=== PATIENT | female | born 1945 | race Hispanic/Latino ===

== ENCOUNTER 2018-04-29 15:02 | Outpatient (CLI) | payer MEDICARE ==
[2018-04-29 15:50] LABS: Blood Urea Nitrogen 12 mg/dL (7-17)
--- NOTE | 2018-04-30 08:20 | Magnetic Resonance Report ---
MRI BRAIN WITHOUT CONTRAST: 04/29/18 15:02:00 CLINICAL: Transient cerebral ischemia TECHNIQUE: Axial diffusion, T1, T2, gradient echo T2*, coronal and axial FLAIR and sagittal T1 sequences on a 1.5 Denisa magnet. FINDINGS: The ventricles and sulci are normal for age. No restricted diffusion. Right occipital lobe encephalomalacia and mild ex-vacuo dilatation of the right occipital horn. Mild bilateral multifocal white matter hyperintensities on FLAIR and T2. No mass or mass effect. No hemorrhage, edema or extra-axial collection. Normal pituitary and optic chiasm. The brainstem and cerebellum are normal. Intact vascular flow voids. Normal sinuses. The orbits, and soft tissues are normal. Normal calvarium and skull base. IMPRESSION: 1. Chronic right occipital lobe infarct. 2. No evidence of acute/subacute infarct or hemorrhage. 3. Mild chronic white matter microangiopathy.
--- NOTE | 2018-04-30 08:39 | Magnetic Resonance Report ---
MRA HEAD WITHOUT CONTRAST: 04/29/18 15:02:00 CLINICAL: Transient ischemia. TECHNIQUE: Axial 3-D [id number] MR angiography of the [place] with review of axial source images. FINDINGS: Occlusion of the proximal right [employer]. No other occlusions or high-grade stenoses. No aneurysm. Symmetric blood flow in the anterior, middle and posterior cerebral arteries. Normal basilar and vertebral arteries. IMPRESSION: Occlusion of the proximal right [employer] and otherwise normal.
--- NOTE | 2018-04-30 08:45 | Magnetic Resonance Report ---
MRA NECK WITHOUT AND WITH CONTRAST: 04/29/18 CLINICAL: Transient ischemia. TECHNIQUE: Axial 3-D [id number] MR angiography and coronal contrast MR angiography of the carotid and vertebral arteries with review of axial and coronal source images on a 1.5 Denisa magnet. 15 cc of Multihance was injected intravenously for the contrast portion of the exam and consent was obtained prior to the administration of the contrast. FINDINGS: The bilateral common and internal carotid arteries are intact. Bilateral vertebral arteries are intact. No stenoses or occlusions. Dominant left vertebral artery. Normal basilar artery. IMPRESSION: No significant stenosis and no occlusion.
== END 2018-04-29 15:03 | disposition home or self-care (01) ==
LOC: MRI 15:02
PROVIDERS: ATTEND Internal Medicine
DX: G45.8 Other transient cerebral ischemic attacks and related syndromes (principal); I70.8 Atherosclerosis of other arteries; I73.89 Other specified peripheral vascular diseases
CPT/HCPCS: 36415; 70544; 70549; 70551; 82565; 84520; A9577

== ENCOUNTER 2018-08-26 10:07 | Outpatient (CLI) | payer MEDICARE ==
--- NOTE | 2018-08-27 13:03 | Magnetic Resonance Report ---
BILATERAL BREAST MRI WITHOUT AND WITH CONTRAST: 08/26/18 10:07:00 CLINICAL: Breast cancer survivor status post right mastectomy. Mastodynia. COMPARISON:09/13/16 left mammogram. No more recent comparison is available.. TECHNIQUE: Axial 1.0-mm T1 without, axial high resolution 2.0-mm T2 and axial 1.0-mm dynamic Vibrant high-resolution postcontrast T1 fat saturation sequences on a 1.5 Denisa magnet. The examination was performed with an 8 channel dedicated [place] breast coil. Post processing with CAD and subtraction was performed on an [employer] workstation. 16.0 cc of Multihance was injected without incident for the contrast portion of the exam. Consent was obtained prior to the administration of the contrast. FINDINGS: Right: Normal right chest wall and axilla. No mass or suspicious enhancement. Left: Minimal background parenchymal enhancement. No mass or suspicious enhancement. Several left axillary lymph nodes with central fat and benign morphology. No suspicious lymph nodes. IMPRESSION: Negative study status post right mastectomy. Recommend routine mammographic screening. BI-RADS 1 - - Negative
== END 2018-08-26 10:08 | disposition home or self-care (01) ==
LOC: SPVIMAG 10:07
PROVIDERS: ATTEND Surgery
DX: N64.4 Mastodynia (principal); Z85.3 Personal history of malignant neoplasm of breast; Z90.12 Acquired absence of left breast and nipple
CPT/HCPCS: A9577; C8908; 77059